=== PATIENT | female | born 1945 | race Caucasian/White ===

== ENCOUNTER → 2017-01-11 | Outpatient (CLI) | payer OTHER ==
[~2017-01-11] MED LIST: ALBU90AE INH; ASPI-496 PO; DOCU-30 PO; FLUSH FREE NIACIN PO; FLUT10.6 INH; HYDR-3240 PO; IPRA4AER INH; LACT1CAP40 PO; LEVO125T5 PO; LEVO750T26 PO; LISI1TAB7 PO; METH4TAB2 PO; METO25TA91 PO; METO50TA4 PO; MULT-516 PO; PRAV80TA2 PO; TICA90TA PO; TIOT18CA INH; UMEC1DIS INH; VERA120T5 PO; VITAMIN B12 PO
== END | disposition home or self-care (01) ==
LOC: CFH 10:24
PROVIDERS: ATTEND Internal Medicine Critical Care Medicine
DX: C34.32 Malignant neoplasm of lower lobe, left bronchus or lung (principal); J43.2 Centrilobular emphysema; I25.10 Atherosclerotic heart disease of native coronary artery without angina pectoris; R91.8 Other nonspecific abnormal finding of lung field; N28.1 Cyst of kidney, acquired; M41.84 Other forms of scoliosis, thoracic region; M47.894 Other spondylosis, thoracic region; M85.88 Other specified disorders of bone density and structure, other site
CPT/HCPCS: 71250

== ENCOUNTER 2017-03-23 13:23 | Emergency (ER) | payer OTHER ==
[~2017-03-23] VITALS: Ht 165.1 cm; Wt 75.6 kg
[~2017-03-23 13:23] MED LIST changes: +DOCU-131 PO; -DOCU-30 PO
[2017-03-23] MEDS ORDERED: PHENYLEPHRINE NASAL 1%, 15ML SPRAY ONE (13:48)
[2017-03-23] MEDS ORDERED: SILVER NITRATE STICK TP ONE (13:49)
[2017-03-23] MEDS ORDERED: BACITRACIN ZINC OINT 500U/GM, 0.9 GM ONE (13:52)
[2017-03-23 15:41] VITALS: BP 138/89
== END 2017-03-23 15:43 | disposition home or self-care (01) ==
LOC: ED 14:01
DX: R04.0 Epistaxis (principal); J44.9 Chronic obstructive pulmonary disease, unspecified
CPT/HCPCS: 30901; 99284

== ENCOUNTER → 2017-11-22 | Outpatient (CLI) | payer OTHER ==
[~2017-11-22] MED LIST changes: +REGADENOSON 0.4 MG/5 ML SYRINGE ONE
== END | disposition home or self-care (01) ==
LOC: CFH 08:20
PROVIDERS: ATTEND Nurse Practitioner Family
DX: I10 Essential (primary) hypertension (principal); I25.10 Atherosclerotic heart disease of native coronary artery without angina pectoris; Z95.5 Presence of coronary angioplasty implant and graft
CPT/HCPCS: 78452; 93017; A9502; J2785

== ENCOUNTER → 2018-01-19 | Outpatient (CLI) | payer OTHER ==
[~2018-01-19] MED LIST changes: -REGADENOSON 0.4 MG/5 ML SYRINGE ONE
== END | disposition home or self-care (01) ==
LOC: CFH 08:43
PROVIDERS: ATTEND Internal Medicine Critical Care Medicine
DX: C34.32 Malignant neoplasm of lower lobe, left bronchus or lung (principal); R91.8 Other nonspecific abnormal finding of lung field
CPT/HCPCS: 71250

== ENCOUNTER 2018-11-24 15:22 | Inpatient (IN) | payer MEDICARE ==
[~2018-11-24] VITALS: Ht 162.6 cm; Wt 84.1 kg
[~2018-11-24 15:22] MED LIST changes: +AMLO10TA8 PO; +ASPI81TA45 PO; +CEFD300C37 PO; +DOXY100T PO; +FLUT1BLS3 INH; +IRBE1TAB37 PO; +METO-264 PO; +PRED10TA PO
[2018-11-24] MEDS ORDERED: ALBUTEROL/IPRATROPIUM 2.5MG/0.5MG, 3 ML NPPB SCH (15:30)
--- NOTE | 2018-11-24 15:52 | NUR ---
Pt wheeled to room 35. Pt O2 sats 85% on 6 LPM NC. Pt placed on oxymask. Pt changing into gown.
--- NOTE | 2018-11-24 15:57 | NUR ---
Pt replaced on 6L NC and coached on breathing techniques. O2 sat now 90%.
[2018-11-24 16:02] LABS: BASOPHILS # (AUTO) 0.09 x10^3/uL (0-0.1); BASOPHILS % (AUTO) 1 % (0-1); EOSINOPHILS # (AUTO) 0.05 x10^3/uL (0-0.4); EOSINOPHILS % (AUTO) 0 % (1-7); LYMPHOCYTES % (AUTO) 17 % (22-44); MD NO; MEAN CORPUSCULAR HEMOGLOBIN 31.7 pg (27.0-34.8); MEAN CORPUSCULAR VOLUME 96.1 fL (80-100); MEAN PLATELET VOLUME 9.1 fL (7.4-10.4); MONOCYTES # (AUTO) 0.97 x10^3/uL (0.2-0.8); MONOCYTES % (AUTO) 6 % (2-9); NEUTROPHILS # (AUTO) 12.64 x10^3/uL (1.8-6.8); NEUTROPHILS % (AUTO) 76 % (42-75); PLATELET COUNT 232 x10^3/uL (130-400); RED BLOOD COUNT 4.28 x10^6/uL (3.82-5.3); RED CELL DISTRIBUTION WIDTH 14.3 % (9.6-15.2)
[2018-11-24 16:04] LABS: ALANINE AMINOTRANSFERASE 34 U/L (12-78); ALBUMIN 3.3 g/dL (3.4-5.0); ANION GAP 8 mmol/L (5-15); CALCIUM 8.9 mg/dL (8.5-10.1); CHLORIDE 101 mmol/L (98-107); CREATININE 0.82 mg/dL (0.55-1.02)
[2018-11-24 16:08] LABS: ALKALINE PHOSPHATASE 104 U/L (45-117); BILIRUBIN,TOTAL 1.1 mg/dL (0.2-1.0); TOTAL PROTEIN 7.3 g/dL (6.4-8.2); TROPONIN I < 0.015 ng/mL (0.000-0.045)
[2018-11-24] MEDS ORDERED: ALBUTEROL/IPRATROPIUM 2.5MG/0.5MG, 3 ML NEB ONE (16:15)
[2018-11-24] MEDS ORDERED: ALBUTEROL SULFATE 2.5 MG/3 ML NPPB ONE (16:15)
--- NOTE | 2018-11-24 16:16 | NUR ---
Pt medicated per MAR.
[2018-11-24] MEDS ORDERED: ALBUTEROL/IPRATROPIUM 2.5MG/0.5MG, 3 ML ONE ×2 (16:30→20:01)
[2018-11-24] MEDS ORDERED: ALBUTEROL SULFATE 2.5MG/0.5ML ONE (16:30)
--- NOTE | 2018-11-24 16:35 | NUR ---
RT at bedside.
--- NOTE | 2018-11-24 17:54 | NUR ---
Pt ambulated in hallway with portable O2 on at 6LPM NC and portable pulse ox. Pt O2 sats dropped to 83% and sustained while pt stopped in hallway to catch her breath. After several minutes O2 sats back up to 89%. Upon arrival back to [facility], O2 sats down to 79% and again took minutes to get back up to 89%-90%.
--- NOTE | 2018-11-24 18:35 | NUR ---
Pt resting on gurney, O2 turned down to 5LPM. Pt aware of plan for admission as she is not able to keep her O2 levels up with ambulation.
--- NOTE | 2018-11-24 19:30 | NUR ---
Dr. Tidwell at bedside to evaluate pt for admission.
--- NOTE | 2018-11-24 19:54 | NUR ---
Pt resting on gurney, aware of plan for admit and that we are waiting on a bed assignment. Pt with no needs at this time, bed rails up x 2, call light on pt's lap.
[2018-11-24] MEDS: NICOTINE 7 MG/24 HR PATCH.TD24 TD SCH (20:00)
[2018-11-24] MEDS ORDERED: ALBUTEROL SULFATE 2.5 MG/3 ML NPPB PRN (20:00)
[2018-11-24] MEDS ORDERED: DOCUSATE 100 MG CAPSULE PO PRN (20:00)
[2018-11-24] MEDS ORDERED: ONDANSETRON ODT 4 MG PO PRN (20:00)
[2018-11-24] MEDS ORDERED: hydrALAzine 20 MG/ML, 1ML IVPush PRN (20:00)
[2018-11-24] MEDS ORDERED: ACETAMINOPHEN 325 MG TABLET PO PRN (20:00)
[2018-11-24] MEDS ORDERED: AZITHROMYCIN 500 MG TABLET PO ONE (20:00)
[2018-11-24] MEDS ORDERED: ENALAPRILAT 1.25 MG/ML, 2ML IVPush PRN (20:00)
[2018-11-24] MEDS ORDERED: IPRATROPIUM 0.5 MG/2.5 ML INHA NPPB SCH (20:00)
--- NOTE | 2018-11-24 20:04 | NUR ---
RT at bedside for treatment.
[2018-11-24] MEDS: ALBUTEROL/IPRATROPIUM 2.5MG/0.5MG, 3 ML NPPB SCH ×2 (20:08→22:50)
--- NOTE | 2018-11-24 20:11 | NUR ---
Telephone SBAR report given to RNJuana.
--- NOTE | 2018-11-24 20:12 | NUR ---
Pt made aware of new room assignment.
[2018-11-24] MEDS ORDERED: POTASSIUM CHLORIDE 10% 20 MEQ/15 ML UDC PO ONE (20:30)
[2018-11-24] MEDS: HEPARIN 5,000 UNITS/ML, 1ML SQ SCH (21:16)
[2018-11-24] MEDS: LEVOTHYROXINE 125 MCG TABLET PO SCH (21:17)
[2018-11-24] MEDS: ASPIRIN 81 MG TABLET EC PO SCH (21:17)
[2018-11-25 00:29] VITALS: BP 110/68
[2018-11-25 00:56] LABS: CLOSTRIDIUM DIFFICILE ANTIGEN NEGATIVE; CLOSTRIDIUM DIFFICILE TOXIN NEGATIVE (Negative)
[2018-11-25] MEDS: ALBUTEROL/IPRATROPIUM 2.5MG/0.5MG, 3 ML NPPB SCH ×6 (01:59→23:25)
[2018-11-25 03:53] VITALS: BP 113/56
[2018-11-25 05:54] LABS: MEAN CORPUSCULAR HEMOGLOBIN 31.3 pg (27.0-34.8); MEAN CORPUSCULAR HGB CONC 32.5 g/dL (32.4-35.8); MEAN CORPUSCULAR VOLUME 96.2 fL (80-100); MEAN PLATELET VOLUME 9.5 fL (7.4-10.4); PLATELET COUNT 205 x10^3/uL (130-400); RED BLOOD COUNT 3.94 x10^6/uL (3.82-5.3); RED CELL DISTRIBUTION WIDTH 14.2 % (9.6-15.2)
[2018-11-25 06:00] LABS: ALANINE AMINOTRANSFERASE 35 U/L (12-78); ALBUMIN 3.1 g/dL (3.4-5.0); ANION GAP 7 mmol/L (5-15); CALCIUM 9.2 mg/dL (8.5-10.1); CHLORIDE 102 mmol/L (98-107); CREATININE 0.67 mg/dL (0.55-1.02)
[2018-11-25 06:10] LABS: ALKALINE PHOSPHATASE 99 U/L (45-117); BILIRUBIN,TOTAL 0.6 mg/dL (0.2-1.0); THYROID STIMULATING HORMONE 0.537 mIU/L (0.358-3.740)
[2018-11-25 06:18] LABS: BASOPHILS # (AUTO) 0.06 x10^3/uL (0-0.1); BASOPHILS % (AUTO) 1 % (0-1); EOSINOPHILS % (AUTO) 0 % (1-7); LYMPHOCYTES # (AUTO) 1.38 x10^3/uL (1-3.4); LYMPHOCYTES % (AUTO) 11 % (22-44); MD SCAN; MONOCYTES # (AUTO) 0.69 x10^3/uL (0.2-0.8); MONOCYTES % (AUTO) 5 % (2-9); NEUTROPHILS # (AUTO) 10.98 x10^3/uL (1.8-6.8); NEUTROPHILS % (AUTO) 84 % (42-75)
[2018-11-25] MEDS ORDERED: POTASSIUM CHLORIDE 10% 20 MEQ/15 ML UDC PO ONE (07:00)
[2018-11-25 08:00] VITALS: BP 107/65
[2018-11-25] MEDS: predniSONE 50MG TABLET PO SCH (08:28)
[2018-11-25] MEDS: HEPARIN 5,000 UNITS/ML, 1ML SQ SCH ×2 (08:28→17:44)
[2018-11-25] MEDS: ASPIRIN 81 MG TABLET EC PO SCH ×2 (08:28→22:10)
[2018-11-25] MEDS: POTASSIUM CHLORIDE 20 MEQ TAB.ER.PRT PO SCH ×2 (08:28→17:44)
[2018-11-25] MEDS: AZITHROMYCIN 250 MG TABLET PO SCH (08:28)
[2018-11-25] MEDS: METOPROLOL SUCCINATE 50 MG TAB.ER.24H PO SCH (08:29)
[2018-11-25] MEDS: AMLODIPINE 5 MG TABLET PO SCH (12:00)
[2018-11-25 13:42] VITALS: BP 110/64
[2018-11-25] MEDS: NICOTINE 7 MG/24 HR PATCH.TD24 TD SCH (20:00)
[2018-11-25 21:25] VITALS: BP 118/75
[2018-11-25] MEDS: LEVOTHYROXINE 125 MCG TABLET PO SCH (22:10)
[2018-11-25] MEDS: ATORVASTATIN 20 MG TABLET PO SCH (22:10)
[2018-11-26] MEDS: HEPARIN 5,000 UNITS/ML, 1ML SQ SCH ×3 (02:00→18:11)
[2018-11-26] MEDS: ALBUTEROL/IPRATROPIUM 2.5MG/0.5MG, 3 ML NPPB SCH ×6 (02:31→22:27)
[2018-11-26 02:38] VITALS: BP 118/73
[2018-11-26 05:49] LABS: BASOPHILS # (AUTO) 0.03 x10^3/uL (0-0.1); BASOPHILS % (AUTO) 0 % (0-1); EOSINOPHILS # (AUTO) 0.01 x10^3/uL (0-0.4); EOSINOPHILS % (AUTO) 0 % (1-7); LYMPHOCYTES # (AUTO) 2.57 x10^3/uL (1-3.4); LYMPHOCYTES % (AUTO) 22 % (22-44); MD NO; MEAN CORPUSCULAR HEMOGLOBIN 31.3 pg (27.0-34.8); MEAN CORPUSCULAR HGB CONC 32.5 g/dL (32.4-35.8); MEAN CORPUSCULAR VOLUME 96.3 fL (80-100); MONOCYTES # (AUTO) 0.86 x10^3/uL (0.2-0.8); MONOCYTES % (AUTO) 7 % (2-9); NEUTROPHILS # (AUTO) 8.45 x10^3/uL (1.8-6.8); NEUTROPHILS % (AUTO) 71 % (42-75); PLATELET COUNT 246 x10^3/uL (130-400); RED BLOOD COUNT 3.79 x10^6/uL (3.82-5.3); RED CELL DISTRIBUTION WIDTH 14.7 % (9.6-15.2)
[2018-11-26 06:08] LABS: ANION GAP 4 mmol/L (5-15); CALCIUM 8.9 mg/dL (8.5-10.1); CHLORIDE 106 mmol/L (98-107)
[2018-11-26 06:14] LABS: CREATININE 0.63 mg/dL (0.55-1.02)
[2018-11-26 07:29] VITALS: BP 115/71
[2018-11-26] MEDS: METOPROLOL SUCCINATE 50 MG TAB.ER.24H PO SCH (09:00)
[2018-11-26] MEDS: predniSONE 50MG TABLET PO SCH ×2 (09:05→20:40)
[2018-11-26] MEDS: AZITHROMYCIN 250 MG TABLET PO SCH (09:05)
[2018-11-26] MEDS: ASPIRIN 81 MG TABLET EC PO SCH ×2 (09:05→20:40)
[2018-11-26] MEDS: IBUPROFEN 600 MG TABLET PO PRN ×2 (09:09→20:40)
[2018-11-26] MEDS: AMLODIPINE 5 MG TABLET PO SCH (12:00)
[2018-11-26 13:38] VITALS: BP 129/75
[2018-11-26] MEDS ORDERED: ALBU2.5V NEB (14:51)
[2018-11-26] MEDS ORDERED: AZIT250T89 PO (14:51)
[2018-11-26] MEDS ORDERED: PRED50TA PO (14:51)
[2018-11-26] MEDS: POLYETHYLENE GLYCOL 17 GM PACKET PO PRN (18:12)
[2018-11-26 19:29] VITALS: BP 143/83
[2018-11-26] MEDS: NICOTINE 7 MG/24 HR PATCH.TD24 TD SCH (20:00)
[2018-11-26] MEDS: LEVOTHYROXINE 125 MCG TABLET PO SCH (20:40)
[2018-11-26] MEDS: ATORVASTATIN 20 MG TABLET PO SCH (20:40)
[2018-11-27] MEDS: HEPARIN 5,000 UNITS/ML, 1ML SQ SCH ×2 (01:42→08:52)
[2018-11-27] MEDS: ALBUTEROL/IPRATROPIUM 2.5MG/0.5MG, 3 ML NPPB SCH ×4 (02:31→15:45)
[2018-11-27 03:20] VITALS: BP 132/81
[2018-11-27 05:22] LABS: MEAN CORPUSCULAR HEMOGLOBIN 30.8 pg (27.0-34.8); MEAN CORPUSCULAR HGB CONC 31.6 g/dL (32.4-35.8); MEAN CORPUSCULAR VOLUME 97.4 fL (80-100); MEAN PLATELET VOLUME 8.8 fL (7.4-10.4); PLATELET COUNT 277 x10^3/uL (130-400); RED BLOOD COUNT 3.86 x10^6/uL (3.82-5.3); RED CELL DISTRIBUTION WIDTH 14.6 % (9.6-15.2)
[2018-11-27 06:58] LABS: BASOPHILS # (AUTO) 0.04 x10^3/uL (0-0.1); BASOPHILS % (AUTO) 0 % (0-1); EOSINOPHILS % (AUTO) 0 % (1-7); LYMPHOCYTES % (AUTO) 16 % (22-44); MD SCAN; MONOCYTES # (AUTO) 0.46 x10^3/uL (0.2-0.8); MONOCYTES % (AUTO) 4 % (2-9); NEUTROPHILS % (AUTO) 80 % (42-75)
[2018-11-27 07:20] VITALS: BP 102/67
[2018-11-27] MEDS: ASPIRIN 81 MG TABLET EC PO SCH (08:50)
[2018-11-27] MEDS: predniSONE 50MG TABLET PO SCH (08:50)
[2018-11-27] MEDS: METOPROLOL SUCCINATE 50 MG TAB.ER.24H PO SCH (08:51)
[2018-11-27] MEDS: POLYETHYLENE GLYCOL 17 GM PACKET PO PRN (09:01)
[2018-11-27] MEDS: AZITHROMYCIN 250 MG TABLET PO SCH (09:01)
[2018-11-27 12:39] VITALS: BP 125/75
[2018-11-27] MEDS: ATORVASTATIN 20 MG TABLET PO SCH (12:40)
[2018-11-27] MEDS: AMLODIPINE 5 MG TABLET PO SCH (12:40)
[2018-11-27] MEDS: IBUPROFEN 600 MG TABLET PO PRN (12:40)
== END 2018-11-27 16:55 | disposition home or self-care (01) | DRG 189 ==
LOC: ED 16:26 → EDIP 18:43 → 3NE 20:35 → DCLOUNGE 11-27 16:40
PROVIDERS: ADMIT Family Medicine; ATTEND Family Medicine
DX: J96.01 Acute respiratory failure with hypoxia (principal); J44.1 Chronic obstructive pulmonary disease with (acute) exacerbation; F19.20 Other psychoactive substance dependence, uncomplicated; I25.10 Atherosclerotic heart disease of native coronary artery without angina pectoris; E87.6 Hypokalemia; F17.200 Nicotine dependence, unspecified, uncomplicated; I10 Essential (primary) hypertension; E03.9 Hypothyroidism, unspecified; Z88.1 Allergy status to other antibiotic agents; Z80.1 Family history of malignant neoplasm of trachea, bronchus and lung; Z82.49 Family history of ischemic heart disease and other diseases of the circulatory system; Z87.01 Personal history of pneumonia (recurrent); Z85.118 Personal history of other malignant neoplasm of bronchus and lung; Z95.5 Presence of coronary angioplasty implant and graft; Z99.81 Dependence on supplemental oxygen
CPT/HCPCS: 36415; 71045; 71046; 80048; 80053; 84443; 84484; 85025; 87324; 93005; 94640; 94667; 99285; G0378; J1644; J7613; J7620; J7512

== ENCOUNTER → 2019-01-09 | Outpatient (CLI) | payer MEDICARE ==
[~2019-01-09] MED LIST changes: +ALBU2.5V NEB; +AZIT250T89 PO; +PRED50TA PO; +REGADENOSON 0.4 MG/5 ML SYRINGE ONE
== END | disposition home or self-care (01) ==
LOC: CFH 08:16
PROVIDERS: ATTEND Internal Medicine Cardiovascular Disease
DX: I25.10 Atherosclerotic heart disease of native coronary artery without angina pectoris (principal); I10 Essential (primary) hypertension; Z95.5 Presence of coronary angioplasty implant and graft
CPT/HCPCS: 78452; 93017; A9502; J2785

== ENCOUNTER 2019-12-18 11:48 | Outpatient (CLI) | payer MEDICARE ==
[~2019-12-18 11:48] MED LIST changes: +LISI1TAB20 PO; -LISI1TAB7 PO; +VERA120T13 PO; -VERA120T5 PO
[2019-12-18] MEDS ORDERED: REGADENOSON 0.4 MG/5 ML SYRINGE ONE (11:56)
== END 2019-12-18 23:59 | disposition home or self-care (01) ==
LOC: CFH 11:48
PROVIDERS: ATTEND Internal Medicine Cardiovascular Disease
DX: I25.10 Atherosclerotic heart disease of native coronary artery without angina pectoris (principal)
CPT/HCPCS: 78452; 93017; A9502; J2785

== ENCOUNTER → 2020-03-02 | Outpatient (CLI) | payer MEDICARE ==
[~2020-03-02] MED LIST changes: -REGADENOSON 0.4 MG/5 ML SYRINGE ONE
== END | disposition home or self-care (01) ==
LOC: CFH 14:46
PROVIDERS: ATTEND Nurse Practitioner Family
DX: M70.88 Other soft tissue disorders related to use, overuse and pressure other site (principal); M79.662 Pain in left lower leg

== ENCOUNTER → 2020-04-08 | Outpatient (CLI) | payer MEDICARE ==
[~2020-04-08] MED LIST changes: +OMNIPAQUE 350 MG/ML, 75ML BOTTLE ONE
== END | disposition home or self-care (01) ==
LOC: CFH 10:13
PROVIDERS: ATTEND Nurse Practitioner Family
DX: R91.1 Solitary pulmonary nodule (principal); M70.88 Other soft tissue disorders related to use, overuse and pressure other site; M79.662 Pain in left lower leg
CPT/HCPCS: 71260; Q9967

== ENCOUNTER → 2020-04-17 | Outpatient (CLI) | payer MEDICARE ==
[~2020-04-17] MED LIST changes: -OMNIPAQUE 350 MG/ML, 75ML BOTTLE ONE
== END | disposition home or self-care (01) ==
LOC: CFH 16:19
PROVIDERS: ATTEND Nurse Practitioner Family
DX: I35.8 Other nonrheumatic aortic valve disorders (principal); M70.88 Other soft tissue disorders related to use, overuse and pressure other site; I10 Essential (primary) hypertension; E78.5 Hyperlipidemia, unspecified; J44.9 Chronic obstructive pulmonary disease, unspecified; Z87.891 Personal history of nicotine dependence
CPT/HCPCS: 93306